=== PATIENT | female | born 1990 | race Caucasian/White ===

== ENCOUNTER 2018-06-07 02:03 | Emergency (ER) | payer MEDICAID ==
[2018-06-07] MEDS ORDERED: IPRATROPIUM/ALBUTEROL 3 ML DEYVIAL IH ONE (02:06)
[2018-06-07] MEDS ORDERED: NS 1,000 ML IV ONE (02:06)
[2018-06-07] MEDS ORDERED: predniSONE 20 MG TAB PO ONE (02:06)
--- NOTE | 2018-06-07 02:45 | EDPHY ---
H & P Stated Complaint: SOB, hx asthma Time Seen by Provider: 06/07/18 02:06 HPI/ROS: HPI The patient presents with several days of URI type symptoms, now with shortness of breath, not improved with her albuterol inhaler at home.. She says she has felt wheezes for the last several hours, getting progressively worse despite using her inhaler. She has had a mild cough associated with this. She has not had any fevers. She is currently traveling from [place]. She does not have any chest pain. Paramedics administered albuterol with improvement in her symptoms. When they picked her up, pulse ox was 98% though she was slightly tachypneic with respiratory rate of about 24. She has not had any chest pain. This feels typical of her usual asthma exacerbations. REVIEW OF SYSTEMS 10 systems were reviewed and negative with the exception of the elements mentioned in the history of present illness. PMHx: Asthma as a child, last hospitalization was at age 13, had 3 total hospitalizations with no intubations Soc Hx: Visiting the area, history of smoking, staying at a friend's RV PHYSICAL General Appearance: Alert, no distress Eyes: Pupils equal and round no pallor or injection ENT, Mouth: Mucous membranes moist Respiratory: She is able to speak full sentences, there are no retractions, there are coarse breath sounds were all lung carlson with some wheezing present Cardiovascular: Regular rate and rhythm Gastrointestinal: Abdomen is soft and non-tender, no masses, bowel sounds normal Neurological: A&O, moves all extremities Skin: Warm and dry, no rashes Musculoskeletal: Neck is supple non tender Extremities: symmetrical, full range of motion Psychiatric: Patient is oriented X 3, there is no agitation Source: Patient, EMS Exam Limitations: No limitations - Personal History LMP (Females 10-55): 22-28 Days Ago Current Tetanus Diphtheria and Acellular Pertussis (TDAP): Yes - Medical/Surgical History Hx Asthma: Yes Hx Chronic Respiratory Disease: No Hx Diabetes: No Hx Cardiac Disease: No Hx Renal Disease: No Hx Cirrhosis: No Hx Alcoholism: No Hx HIV/AIDS: No Hx Splenectomy or Spleen Trauma: No Other PMH: asthma, hypothyroidism, restless leg - Social History Smoking Status: Current every day smoker Constitutional: Initial Vital Signs Temperature (C) 37.1 C 06/07/18 02:05 Heart Rate 114 H 06/07/18 02:05 Respiratory Rate 26 H 06/07/18 02:05 Blood Pressure 171/99 H 06/07/18 02:05 O2 Sat (%) 100 06/07/18 02:05 O2 Delivery Mode Room Air Allergies/Adverse Reactions: amoxicillin Allergy (Verified 06/07/18 02:08) azithromycin Allergy (Verified 06/07/18 02:08) Sulfa (Sulfonamide Antibiotics) Allergy (Verified 06/07/18 02:08) Home Medications: Medication Instructions Recorded ALBUTEROL SULFATE 06/07/18 Albuterol Hfa Anes Only [Proair 2 puffs IH QID #1 mdi 06/07/18 Hfa Icu (*)] Azithromycin 250 mg PO DAILY 4 Days tablet 06/07/18 Levothyroxine 06/07/18 Ropinirole HCl 06/07/18 predniSONE [Prednisone] 40 mg PO DAILY 4 Days tablet 06/07/18 Medical Decision Making - Diagnostics Imaging Results: Chest x-ray two views demonstrates peribronchial thickening with possible faint retrocardiac infiltrate, interpreted by me, radiology interpretation pending. Imaging: I viewed and interpreted images myself Differential Diagnosis: 28-year-old female, transient and visiting from [facility] with history of asthma which is intermittent though required admissions as a child presents brought in by ambulance for shortness of breath, wheezing, cough. On arrival, she has a saturation of about 95%, she is not tachypneic though does have wheezes throughout her lung carlson. As well as coarse breath sounds. In the emergency department, she was started on a DuoNeb and prednisone, this caused improvement in her symptoms. She was monitored for several hours. She was mildly tachycardic though her tachycardia improved during her time here. She reported still feeling slightly jittery from albuterol she had received earlier. Chest x-ray was performed and did demonstrate peribronchial thickening with possible infiltrate. Because of this I will start her on azithromycin. Her chart says that she has an allergy to this but on further questioning she has had the packed many times before without any trouble. I have counseled her at length on smoking cessation. She was able to walk around the emergency department without any difficulty. She will be discharged home and I have discussed return precautions with her. Differential diagnosis includes asthma exacerbation, bronchitis, pneumonia. I considered pulmonary embolism, however the patient does not have any chest pain or hypoxia. - Data Points Medications Given: Discontinued Medications Albuterol/Ipratropium (Duoneb) 3 ml IH EDNOW ONE Stop: 06/07/18 02:07 Last Admin: 06/07/18 02:29 Dose: 3 ml Sodium Chloride (Ns) 1,000 mls @ 0 mls/hr IV ONCE ONE; Wide Open PRN Reason: Protocol Stop: 06/07/18 02:07 Last Admin: 06/07/18 02:30 Dose: 1,000 mls Prednisone (Prednisone) 60 mg PO EDNOW ONE Stop: 06/07/18 02:07 Last Admin: 06/07/18 02:13 Dose: 60 mg Departure - Departure Disposition: Home, Routine, Self-Care Clinical Impression: Acute bronchitis Qualifiers: Bronchitis organism: unspecified organism Qualified Code(s): J20.9 - Acute bronchitis, unspecified Exacerbation of asthma Qualifiers: Asthma severity: moderate Asthma persistence: unspecified Qualified Code(s): J45.901 - Unspecified asthma with (acute) exacerbation Condition: Good Instructions: Reactive Airways Disease (ED), Asthma (ED) Additional Instructions: Please return to the emergency department if your worse in any way. Referrals: [facility],. [Clinic] - As per Instructions Prescriptions: Albuterol Hfa Anes Only [Proair Hfa Icu (*)] 2 puffs IH QID #1 mdi Doxycycline Hyclate [Vibramycin 100 MG (*)] 100 mg PO BID #14 cap predniSONE [Prednisone] 40 mg PO DAILY 4 Days tablet
[2018-06-07] MEDS ORDERED: DOXYCYCLINE HYCLATE 100 MG CAP/TAB PO ONE (05:00)
[2018-06-07] MEDS ORDERED: DOXYCYCLINE 100 MG PREPACK#2 BTL TAKEHOME ONE (05:00)
[2018-06-07] MEDS ORDERED: AZITHROMYCIN 250 MG TAB PO ONE (05:05)
[2018-06-07 05:16] VITALS: BP 142/76
== END 2018-06-07 05:15 | disposition home or self-care (01) ==
DX: J20.9 Acute bronchitis, unspecified (principal); J45.901 Unspecified asthma with (acute) exacerbation; E86.9 Volume depletion, unspecified; F17.200 Nicotine dependence, unspecified, uncomplicated
CPT/HCPCS: J7512